=== PATIENT | female | born 1950 | race Caucasian/White ===

== ENCOUNTER 2016-06-10 10:26 | Emergency (ER) | payer OTHER ==
[~2016-06-10] VITALS: Ht 152.4 cm; Wt 90.7 kg
[2016-06-10 10:46] VITALS: BP 125/77
[2016-06-10] MEDS ORDERED: LISINOPRIL20 M1 PO (11:02)
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
[2016-06-10] MEDS ORDERED: CYCLOBENZAPRINE5 M2 PO (13:20)
[2016-06-10] MEDS ORDERED: IBUPROFEN800 M1 PO (13:20)
== END 2016-06-10 13:34 ==
LOC: ERH 10:26
DX: M54.2 Cervicalgia (principal); M25.561 Pain in right knee; I10 Essential (primary) hypertension; V43.62XA Car passenger injured in collision with other type car in traffic accident, initial encounter
CPT/HCPCS: 96372; J1885